=== PATIENT | male | born 2000 | race Caucasian/White ===

== ENCOUNTER 2022-07-11 14:53 | Emergency (ER) | payer SELFPAY ==
[2022-07-11 14:54] VITALS: BP 130/84; PULSE 84; RESP 18; TEMP 36.7; O2SAT 99; BMI 30.4
[2022-07-11 14:55] VITALS: BP 130/84; PULSE 84; RESP 18; TEMP 36.7; O2SAT 99
--- NOTE | 2022-07-11 15:15 | EX.ED.DYSGE1 ---
HPI History of Present Illness Chief Complaint: Abscess Narrative Narrative: 22-year-old male with history of pilonidal cyst presenting with what he believes is return of the cyst. Patient states he had this initially drained at [facility]. He was given surgical follow-up but since he does not have health insurance he did not follow-up with the surgeon. Patient does not have any systemic signs or symptoms. No history of MRSA. PFSH PFSH Medical History no medical history Home Medications naproxen 500 mg tablet (Naprosyn) 500 mg PO BID PRN pain #20 tabs 07/11/22 [Rx Last Taken Unknown] sulfamethoxazole 800 mg-trimethoprim 160 mg tablet (Bactrim DS) 1 tab PO BID #20 tabs 07/11/22 [Rx Last Taken Unknown] Allergy/AdvReac Type Severity Reaction Status Date / Time No Known Allergies Allergy Verified 07/11/22 14:55 Social History Smoking Status: Unknown if ever smoked ROS ROS ED Constitutional Constitutional ED: Denies chills or fever(s) Eyes Eyes: Denies change in vision ENT ENT ED: Denies rhinorrhea or sore throat Cardiovascular Cardiovascular: Denies chest pain or palpitations Respiratory/Chest Respiratory/Chest: Denies cough or dyspnea Gastrointestinal Gastrointestinal: Denies abdominal pain or constipation Genitourinary Genitourinary ED: Denies dysuria or hematuria Musculoskeletal Musculoskeletal: Denies arthralgias or back pain Integumentary Reports abscess Neurologic Neurologic: Denies headache(s) or paresthesias Psychiatric Psychiatric: Denies anxiety or depression EXAM Physical Exam Const Vital Signs: 07/11/22 14:54 07/11/22 14:55 Temperature 98.1 F 98.1 F Temperature Source Temporal Temporal Pulse Rate 84 84 Respiratory Rate 18 18 Blood Pressure 130/84 H 130/84 H Blood Pressure Mean 99 99 Pulse Ox 99 99 Oxygen Delivery Method Room Air Room Air Positive well nourished General Appearance ED: NAD HEENT Reports moist mucous membranes Eyes PERRL Resp normal respiratory effort Cardio regular rate and regular rhythm Neuro oriented x3 and CN's II-XII intact bilaterally Sensorium / Orientation: alert Psych mental status grossly normal Skin Skin Narrative: 3.5 cm x 2.0 cm abscess overlying the tailbone. MDM MDM MDM Narrative Medical decision making narrative: Patient presenting with pilonidal abscess. No systemic signs or symptoms. He has had this in the past and had it drained. He has not followed up with surgery because he has not obtained health insurance. Patient states this has been going on for a week currently. Patient consented for incision and drainage. Patient was given oxycodone 5 mg p.o. patient which was cleaned with chlorhexidine. Lidocaine with epinephrine 4 cc was used anesthetize the pilonidal abscess in the area or surrounding. Good anesthesia was achieved. 2 cm x 2 cm cruciate incision made with expression of purulent discharge. The wound was deloculated and did express more purulent drainage. Patient's abscess was irrigated with 500 cc of sterile saline. Patient tolerated the procedure well. Patient will be placed on Bactrim. He is given follow-up with Dr. Baeza. He is instructed on sitz bath's and he is given return precautions. Impression: 1. Pilonidal cyst 2. Incision and drainage Lab Data Attestation: I reviewed the patient's lab results. Discharge Plan Triage Chief Complaint: Abscess ED Provider: Harry Marley Dx/Rx/DC Orders Instructions: Taking a Sitz Bath, ED Cyst Pilonidal Infected IandD Prescriptions: New sulfamethoxazole-trimethoprim [Bactrim DS] 800-160 mg tablet 1 tab PO BID Qty: 20 0RF naproxen [Naprosyn] 500 mg tablet 500 mg PO BID PRN (Reason: pain) Qty: 20 0RF Primary Care Provider: Care Physician,No Primary Referrals: David Baeza MD [Med Staff - Active Staff] - 3-5 Days NOT,DEFINED [Non-Staff] - Disposition Disposition: Home, Self Care
[2022-07-11] MEDS: oxyCODONE 5 MG Tablet PO (15:24)
[2022-07-11] MEDS: Smz/Tmp Ds Tablet 1 TABLET PO (15:24)
[2022-07-11] MEDS: Lidocaine 1% /Epi 1:100 (20ml) 20 ML Vial INFILT (15:24)
[2022-07-11 16:23] VITALS: BP 119/81; PULSE 90; RESP 15; O2SAT 99
== END 2022-07-11 16:25 | disposition home or self-care (01) ==
PROVIDERS: Emergency Provider Student in an Organized Health Care Education/Training Program; Visit Provider Student in an Organized Health Care Education/Training Program
DX: L05.01 Pilonidal cyst with abscess (principal)
CPT/HCPCS: 10080; 99283

== ENCOUNTER 2025-07-23 07:18 | Emergency (ER) | payer SELFPAY ==
[2025-07-23 07:19] VITALS: BP 149/90; PULSE 98; RESP 14; TEMP 37.1; O2SAT 98; BMI 30.5
--- NOTE | 2025-07-23 07:37 | EX.ED.VIS.UR ---
HPI HPI - URI History of Present Illness Chief Complaint: Cough Informant: patient Narrative Narrative: Patient is a 25-year-old male with no signal past medical history presenting with URI symptoms that started yesterday. He states started with scratchy sore throat yesterday. He developed congestion, bilateral ear pain, has generalized malaise and feels achy. States he did not sleep well last night. Reports a pressure headache. States he has a cough productive of phlegm that is green. Denies shortness of breath. Has some mild nausea. Denies any vomiting or diarrhea. States he had a coworker who recently was sick with similar symptoms. Had Tylenol last night present nothing today. No other complaints or concerns reported at this time. ROS ROS ED Constitutional Constitutional ED: Reports fever(s), subjective and sweats ENT ENT ED: Reports ear pain bilateral, sore throat and other Details: Congestion Cardiovascular Cardiovascular: Denies chest pain Respiratory/Chest Respiratory/Chest: Reports cough and sputum; Denies dyspnea Gastrointestinal Gastrointestinal: Reports nausea; Denies abdominal pain, diarrhea or vomiting Musculoskeletal Musculoskeletal: Reports myalgias Integumentary Denies rash Neurologic Neurologic: Reports headache(s); Denies weakness PFSH PFSH Home Medications ?Medication ?Instructions ?Recorded ?Last Taken ?Type naproxen 500 mg tablet (Naprosyn) 500 mg PO BID PRN pain #20 tabs 07/11/22 Unknown Rx sulfamethoxazole 800 1 tab PO BID #20 tabs 07/11/22 Unknown Rx mg-trimethoprim 160 mg tablet (Bactrim DS) Allergy/AdvReac Type Severity Reaction Status Date / Time No Known Allergies Allergy Verified 07/23/25 07:19 Social History Smoking Status: Unknown if ever smoked EXAM Physical Exam Const Vital Signs: 07/23/25 07:19 Temperature 98.8 F Temperature Source Temporal Pulse Rate 98 Respiratory Rate 14 Blood Pressure 149/90 H Blood Pressure Mean 109 Pulse Ox 98 Oxygen Delivery Method Room Air Positive well nourished and well developed General Appearance ED: well developed and NAD HEENT Reports moist mucous membranes HEENT Narrative: Nasal congestion present. No rhinorrhea. Uvula is midline. Injected oropharynx present. Mildly enlarged tonsils with no exudate or significant erythema present. Eyes PERRL Neck no lymphadenopathy and supple Resp normal respiratory effort and clear to auscultation bilaterally Auscultation: Negative for wheezes or diminished lung sounds Cardio no murmurs Rate: regular rate Rhythm: regular rhythm GI non-tender Extremity normal to inspection Neuro oriented x3 Sensorium / Orientation: alert Motor Exam: Negative for general weakness Psych mental status grossly normal Skin Skin Narrative: Linear abrasion to the tip of the nose consistent with a cat scratch. No secondary signs of cellulitis or infection Rashes: no rashes MDM MDM MDM Narrative Medical decision making narrative: Patient evaluated for about 24 hours of URI symptoms. Positive sick contact. Overall is nontoxic-appearing but looks like he does not feel great. Vital signs reassuring as he is afebrile and 98% on room air. Differential includes viral syndrome, sinusitis and pneumonia. He has clear breath sounds and is 98% on room air with no increased work of breathing only 24 hours symptoms. I do not think he requires a chest x-ray. Low suspicion for pneumonia clinically. He is only in symptoms for 24 hours low suspicion for bacterial sinusitis. He does not have any fever or redness overlying the sinuses. 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 Is given a work note. Counseled symptomatic treatment including using Mucinex DM or Tylenol Cold and flu as well as Motrin. Given return precautions. Given referral for primary care. Discharged home in stable condition Discharge Plan Triage Chief Complaint: Cough ED Provider: Gaby Wilkerson Dx/Rx/DC Orders Clinical Impression: URI, acute Instructions: ED URI, Viral, No Abx (Adult) Prescriptions: No Action sulfamethoxazole-trimethoprim [Bactrim DS] 800-160 mg tablet 1 tab PO BID Qty: 20 0RF naproxen [Naprosyn] 500 mg tablet 500 mg PO BID PRN (Reason: pain) Qty: 20 0RF Stand Alone Forms: ED Work / School Excuse Primary Care Provider: Care Physician,No Primary Referrals: Care Physician,No Primary [Primary Care Provider, Medical] Gisele Schaeffer, WATER TRAINER-C [facility] Activity Restrictions/Additional Instructions: I suspect a viral syndrome such as rhinovirus or enterovirus. Treatment is supportive. Alternate ibuprofen and Tylenol. For the congestion and cough I recommend taking [id number] medication such as Mucinex DM or Tylenol Cold and flu. Make sure drinking plenty of fluids. If you have worsening symptoms please do not hesitate to return the emergency room. Print Language: [place] Disposition Disposition: Home, Self Care
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
== END 2025-07-23 07:54 | disposition home or self-care (01) ==
PROVIDERS: Emergency Provider Emergency Medicine; Visit Provider Emergency Medicine
DX: J06.9 Acute upper respiratory infection, unspecified (principal)
CPT/HCPCS: 99282